=== PATIENT | male | born 2005 | race Caucasian/White ===

== ENCOUNTER 2023-02-23 13:04 | Emergency (ER) | payer BC, SELFPAY ==
[2023-02-23 13:13] VITALS: BP 142/67; PULSE 100; RESP 20; TEMP 37; O2SAT 100
--- NOTE | 2023-02-23 15:25 | ED.GENADULT ---
HPI - General Adult General Chief complaint: Skin/Abscess/Foreign Body Stated complaint: cyst on lower back Source: patient Mode of arrival: ambulatory Limitations: no limitations History of Present Illness HPI narrative: PATIENT PRESENTS FOR EVALUATION OF PAIN AND SWELLING TO THE COCCYX FOR THE LAST FEW DAYS. NO FEVER, CHILLS, NAUSEA, VOMITING, DRAINAGE FROM THE AFFECTED AREA. NO HISTORY OF SIMILAR SYMPTOMS. HE IS NOT TAKING ANY MEDICATION TO ASSIST WITH THE SYMPTOMS. HE IS NOT DIABETIC. HE DOES NOT SMOKE. NO ADDITIONAL COMPLAINTS OR CONCERNS. Related Data Allergies Allergy/AdvReac Type Severity Reaction Status Date / Time No Known Allergies Allergy Verified 02/23/23 13:16 Review of Systems Review of Systems: CONSTITUTIONAL: DENIES FEVER, CHILLS, OR SWEATS. EYES: DENIES VISUAL CHANGES, REDNESS, OR DISCHARGE. ENT: DENIES RHINORRHEA, CONGESTION, SORE THROAT, OR OTALGIA. CARDIOVASCULAR: DENIES CHEST PAIN, PALPITATIONS, OR EDEMA. RESPIRATORY: DENIES COUGH OR DYSPNEA. GASTROINTESTINAL: DENIES ABDOMINAL PAIN, NAUSEA, VOMITING, OR DIARRHEA. GENITOURINARY: DENIES DYSURIA OR HEMATURIA. SKIN: REPORTS PAIN AND SWELLING TO THE COCCYX MUSCULOSKELETAL: DENIES BACK PAIN, JOINT PAIN, OR MYALGIA. NEUROLOGIC: DENIES HEADACHE, NUMBNESS, DIZZINESS, OR WEAKNESS. PSYCHIATRIC: DENIES ANXIETY OR DEPRESSION. [facility] Past Medical History Medical History (Updated 02/23/23 @ 15:26 by Jeramie Haro, [facility], ) Abscess Pilonidal cyst Surgical History Surgical History (Reviewed 02/23/23 @ 15:26 by Jeramie Haro, [facility], ) No pertinent past surgical history Family History Family History (Reviewed 02/23/23 @ 15:27 by Jeramie Haro, [facility], ) Father Family history non-contributory Social History Social History (Reviewed 02/23/23 @ 15:27 by Jeramie Haro, [facility], ) Smoking status: Never smoker Substance use: never Living arrangements: with family Gender identity (if verbalized by the patient): Male Spiritual care concerns: No Exam Narrative: GENERAL: WELL-APPEARING, WELL-NOURISHED, AND IN NO ACUTE DISTRESS. HEAD: NORMOCEPHALIC, ATRAUMATIC. EYES: PERRLA AND EOMI. ENT: NARES CLEAR, NO RHINORRHEA OR EPISTAXIS. MUCOUS MEMBRANES MOIST. OROPHARYNX WITHOUT TONSILLAR HYPERTROPHY EXUDATE OR OTHER LESIONS. BILATERAL TMS PEARLY MARRERO NONBULGING NECK: SUPPLE. NO ADENOPATHY OR MASSES. NO CAROTID BRUITS OR JVD CHEST: CLEAR TO AUSCULTATION. NO RESPIRATORY DISTRESS. NO WHEEZES RALES OR RHONCHI HEART: REGULAR RATE AND RHYTHM. NO MURMUR HEARD. NORMAL PERIPHERAL PULSES. ABDOMEN: SOFT, NONTENDER, NONDISTENDED, NORMAL ACTIVE BOWEL SOUNDS. EXTREMITIES: NORMAL RANGE OF MOTION. NO EDEMA. SKIN: APPROXIMATELY 3 CM AREA RAISED AREA OF ERYTHEMA OVERLYING THE COCCYX WHICH IS TENDER TO PALPATION AND FLUCTUANT IN NATURE NEURO: NO FOCAL DEFICITS. ALERT AND ORIENTED X3. PSYCH: NORMAL MOOD AND AFFECT. Course Course Emergency Course: THIS IS A 18-YEAR-OLD MALE WHO PRESENTED FOR EVALUATION OF PAIN AND SWELLING TO THE COCCYX. EXAM IS CONSISTENT WITH INFECTED PILONIDAL CYST. INCISION AND DRAINAGE WAS PERFORMED. PATIENT TOLERATED WELL. WOUND WAS PACKED. INSTRUCTED ON WOUND CARE. WILL DISCHARGE WITH KEFLEX, BACTRIM, HYDROCODONE. FOLLOW UP WITH PRIMARY PROVIDER THIS WEEK. GO TO THE ER FOR WORSENING SYMPTOMS OR SYSTEMIC SIGNS OF INFECTION. PATIENT IN AGREEMENT WITH PLAN OF CARE. Level of Care: Express Care Visit Vital Signs Vital signs: Vital Signs Temperature 37.0 C 02/23/23 13:13 Pulse Rate 100 02/23/23 13:13 Respiratory Rate 20 02/23/23 13:13 Blood Pressure 142/67 H 02/23/23 13:13 Pulse Oximetry 100 02/23/23 13:13 Oxygen Delivery Room Air 02/23/23 13:13 Temperature 37.0 C 02/23/23 13:13 Pulse Rate 100 02/23/23 13:13 Respiratory Rate 20 02/23/23 13:13 Blood Pressure 142/67 H 02/23/23 13:13 Pulse Oximetry 100 02/23/23 13:13 Oxygen Delivery Room Air 02/23/23 13:13 Procedures Absces
== END 2023-02-23 15:41 | disposition home or self-care (01) ==
PROVIDERS: Emergency Provider Nurse Practitioner; PCP Emergency Medicine
DX: L05.01 Pilonidal cyst with abscess (principal)
CPT/HCPCS: 10080; 87070; 87205; 99213; G0463

== ENCOUNTER 2023-07-27 12:16 | Emergency (ER) | payer BC, SELFPAY ==
[2023-07-27 12:28] VITALS: BP 142/81; PULSE 108; RESP 20; TEMP 36.2; O2SAT 98
--- NOTE | 2023-07-27 13:26 | ED.GENADULT ---
HPI - General Adult General Chief complaint: Skin/Abscess/Foreign Body Stated complaint: penile cyst Source: patient Mode of arrival: ambulatory Limitations: no limitations History of Present Illness HPI narrative: Patient presents for evaluation of a painful swollen lesion to the coccyx for the last week. I saw him back in January of this year for similar symptoms. Incision and drainage was performed at that time. He was discharged with Bactrim and Keflex. He indicates his symptoms completely resolved. He denies any drainage from the affected area at the present time. No fever, chills, nausea, vomiting. He does not smoke. He is not diabetic. Symptoms are most noticeable when in supine position. Related Data Allergies Allergy/AdvReac Type Severity Reaction Status Date / Time No Known Allergies Allergy Verified 07/27/23 12:41 Review of Systems Review of Systems: CONSTITUTIONAL: Denies fever, chills, or sweats. EYES: Denies visual changes, redness, or discharge. ENT: Denies rhinorrhea, congestion, sore throat, or otalgia. CARDIOVASCULAR: Denies chest pain, palpitations, or edema. RESPIRATORY: Denies cough or dyspnea. GASTROINTESTINAL: Denies abdominal pain, nausea, vomiting, or diarrhea. GENITOURINARY: Denies dysuria or hematuria. SKIN: Reports painful swollen lesion to the coccyx. MUSCULOSKELETAL: Denies back pain, joint pain, or myalgia. NEUROLOGIC: Denies headache, numbness, dizziness, or weakness. PSYCHIATRIC: Denies anxiety or depression. PMFSH Past Medical History Medical History Abscess Pilonidal cyst Surgical History Surgical History No pertinent past surgical history Family History Family History Father Family history non-contributory Social History Social History Smoking status: Never smoker Substance use: never Living arrangements: with family Gender identity (if verbalized by the patient): Male Spiritual care concerns: No Exam Narrative: GENERAL: Well-appearing, well-nourished, and in no acute distress. HEAD: Normocephalic, atraumatic. EYES: PERRLA and EOMI. ENT: Nares clear, no rhinorrhea or epistaxis. Mucous membranes moist. Oropharynx without tonsillar hypertrophy exudate or other lesions. Bilateral TMs pearly wood nonbulging NECK: Supple. No adenopathy or masses. No carotid bruits or JVD CHEST: Clear to auscultation. No respiratory distress. No wheezes rales or rhonchi HEART: Regular rate and rhythm. No murmur heard. Normal peripheral pulses. ABDOMEN: Soft, nontender, nondistended, normal active bowel sounds. EXTREMITIES: Normal range of motion. No edema. SKIN:Approximately 2.5 cm raised erythematous fluctuant mass to coccyx. NEURO: No focal deficits. Alert and oriented x3. PSYCH: Normal mood and affect. Course Course Emergency Course: This is a 18-year-old male who presented for evaluation of a painful swollen lesion to his coccyx with a past medical history of an infected pilonidal cyst. Exam today is also consistent with infected pilonidal cyst. Incision and drainage was performed. Patient tolerated well. Wound culture obtained. Will discharge with Bactrim and Keflex. Advised he follow up with General surgery. Go to the ER for worsening symptoms. Pt in agreement with plan of care. Level of Care: Express Care Visit Vital Signs Vital signs: Vital Signs Temperature 36.2 C L 07/27/23 12:28 Pulse Rate 108 H 07/27/23 12:28 Respiratory Rate 20 07/27/23 12:28 Blood Pressure 142/81 H 07/27/23 12:28 Pulse Oximetry 98 07/27/23 12:28 Oxygen Delivery Room Air 07/27/23 12:28 Temperature 36.2 C L 07/27/23 12:28 Pulse Rate 108 H 07/27/23 12:28 Respiratory Rate 20 07/27/23 12:28 Blood Pressure 142/81
== END 2023-07-27 14:15 | disposition home or self-care (01) ==
PROVIDERS: Emergency Provider Nurse Practitioner
DX: L05.91 Pilonidal cyst without abscess (principal)
CPT/HCPCS: 10080; 87070; 87205; 99213; G0463

== ENCOUNTER 2023-12-26 10:19 | Emergency (ER) | payer BC, SELFPAY ==
[2023-12-26 10:26] VITALS: BP 141/74; PULSE 119; RESP 16; TEMP 36.3; O2SAT 97
--- NOTE | 2023-12-26 10:26 | ED.URI ---
HPI - URI/Sore Throat General Chief Complaint: Upper Respiratory Infection Stated Complaint: Headache/Cough/Runny Nose Source: patient, RN notes reviewed and old records reviewed Mode of arrival: ambulatory Limitations: no limitations History of Present Illness HPI Narrative: 18-year-old male patient presents to [facility] with complaints of with complaint cough, congestion for about 1 week. Patient has been taking [id number] medications with some relief. Patient denies chest pain, shortness of breath, fever, myalgia, dizziness, weakness. MD elicited complaint: cough and nasal congestion Onset (ago): week(s) (1) Consistency: constant Severity: moderate Description of mucous: yellow Able to tolerate fluids by mouth: Yes Exacerbating factors: nothing Relieving factors: OTC cold medicine Treatments prior to arrival: cold medicine Related Data Allergies Allergy/AdvReac Type Severity Reaction Status Date / Time No Known Allergies Allergy Verified 07/27/23 12:41 Review of Systems Constitutional: Constitutional: Reports no additional constitutional complaints, Denies body ache(s), Denies chills, Denies fatigue, Denies fever(s) and Denies headache(s) Eyes: Eyes: Reports no additional eye complaints and Denies blurry vision ENT: Reports system reviewed and no additional complaints, except as documented, Denies vertigo, Denies dizziness, Denies ear discharge, Denies otalgia, Denies facial pain, Denies headache(s), Reports nasal congestion, Reports nasal discharge, Denies sinus pain, Reports sinus pressure and Denies sore throat Cardiovascular: Cardiovascular: Reports no additional cardiovascular complaints, Denies chest pain, Denies chest pain at rest, Denies rapid heart rate and Denies dyspnea Respiratory: Respiratory: Reports no additional respiratory complaints, Reports chest congestion, Reports cough, Denies pain on inspiration, Denies pain with cough and Denies dyspnea Gastrointestinal: Gastrointestinal: Denies abdominal pain, Denies diarrhea, Denies nausea and Denies vomiting Integumentary/Breasts: Skin/Breast: Denies rash Neurologic: Reports system reviewed and no additional complaints, except as documented, Denies vertigo, Denies dizziness and Denies headache(s) Endocrine: Endocrine: Denies fatigue PMFSH Past Medical History Medical History Abscess Pilonidal cyst Surgical History Surgical History No pertinent past surgical history Family History Family History Father Family history non-contributory Social History Social History Smoking status: Never smoker Substance use: never Living arrangements: with family Gender identity (if verbalized by the patient): Male Spiritual care concerns: No Comments At the time of my signature, I reviewed and agree with the nursing past medical, surgical, social, and family history. There is no relevant family history pertinent to the patient complaint. Exam Const: General: cooperative, healthy appearing, no acute distress and well nourished Nutritional Appearance: well nourished Orientation/consciousness: patient oriented x3 Limitations: no limitations HENMT: Head: normal to inspection and normocephalic Ears: external ears normal, TM's normal bilaterally, mastoids normal and Abnormal EAC present Face/Nose/Sinus: normal facial exam Face and sinus: normal facial exam Mouth: Yes Normal oral and palatal mucosa present, Yes oropharynx normal and Yes moist mucous membranes Throat: tonsils normal, uvula midline, posterior oropharynx abnormal and no uvular edema Eyes: General: appearance normal, both eyes and all related structures Sclera: sclerae normal Pupils: Equal, round and reactive pupils present Resp: Effort & Inspection: teetee
== END 2023-12-26 10:45 | disposition home or self-care (01) ==
PROVIDERS: Emergency Provider Registered Nurse
DX: J10.1 Influenza due to other identified influenza virus with other respiratory manifestations (principal); Z20.822 Contact with and (suspected) exposure to COVID-19
CPT/HCPCS: 87426; 87804; 99213; G0463